=== PATIENT | male | born 1990 | race American Indian/Alaskan Native ===

== ENCOUNTER 2020-08-14 01:34 | Emergency (ER) | payer SELFPAY | END 2020-08-14 02:45 | disposition left against medical advice (07) | LOC: ED 01:34 ==

== ENCOUNTER 2021-02-21 11:19 | Emergency (ER) | payer MEDICARE, MEDICAID ==
--- NOTE | 2021-02-21 14:05 | Emergency Department Report ---
ED General Adult HPI - General Chief complaint: Medical Clearance Stated complaint: SEIZURE Time Seen by Provider: 02/21/21 13:52 Source: patient Mode of arrival: Ambulatory Limitations: No Limitations - History of Present Illness Initial comments: Patient is a 30-year-old male who presents to the emergency room with complaints of needing medical clearance for work. He reports that a few days ago he had a seizure. He reports he has a history of epilepsy and takes Depakote and Oxcarbazepine. He reports that he did not go to work due to him having a seizure a few days ago and now his work is stating he needs medical clearance. 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 He denies any symptoms at all currently and feels fine and states that he just needs a letter for work. He denies any missed doses of his medications and states that he has plenty of medication at home. No allergies medications. - Related Data Allergies Allergy/AdvReac Type Severity Reaction Status Date / Time No Known Allergies Allergy Unverified 08/14/20 01:50 ED Review of Systems ROS: Stated complaint: SEIZURE Other details as noted in HPI Comment: All other systems reviewed and negative ED Past Medical Hx - Past Medical History Previous Medical History?: Yes Hx Seizures: Yes - Surgical History Past Surgical History?: No - Social History Smoking Status: Never Smoker Substance Use Type: Alcohol ED Physical Exam - General Limitations: No Limitations General appearance: alert, in no apparent distress - Head Head exam: Present: atraumatic, normocephalic - Eye Eye exam: Present: normal appearance, EOMI - ENT ENT exam: Present: mucous membranes moist - Respiratory Respiratory exam: Present: normal lung sounds bilaterally. Absent: respiratory distress, wheezes, rales, rhonchi, stridor, chest wall tenderness, accessory muscle use, decreased breath sounds, prolonged expiratory - Cardiovascular Cardiovascular Exam: Present: regular rate, normal rhythm, normal heart sounds. Absent: systolic murmur, diastolic murmur, rubs, gallop - Neurological Exam Neurological exam: Present: alert, oriented X3, CN II-XII intact, normal gait. Absent: motor sensory deficit - Psychiatric Psychiatric exam: Present: normal affect, normal mood - Skin Skin exam: Present: warm, dry, intact ED Course Vital Signs 02/21/21 02/21/21 13:39 15:19 Temperature 98.2 F 98.6 F Pulse Rate 67 69 Respiratory 18 16 Rate Blood Pressure 141/84 124/66 [Right] O2 Sat by Pulse 98 99 Oximetry ED Medical Decision Making - Medical Decision Making Patient is a 30-year-old male who presents to the emergency room with complaints of needing medical clearance for work. He reports that a few days ago he had a seizure. He reports he has a history of epilepsy and takes Depakote and Oxcarbazepine. He reports that he did not go to work due to him having a seizure a few days ago and now his work is stating he needs medical clearance. 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 He denies any symptoms at all currently and feels fine and states that he just needs a letter for work. He denies any missed doses of his medications and states that he has plenty of medication at home. No allergies medications. Vitals are stable. Patient is completely asymptomatic at this time. He is alert and oriented x4. He has no focal neuro deficits. Advised patient Please follow-up with your primary care doctor or clinic in order to receive medical clearance to return to work. Return to emergency room for any new or worsening symptoms. Critical care attestation.: If time is entered above; I have spent that time in minutes in the direct care of this critically ill patient, excluding procedure time. ED Disposition Clinical Impression: Encounter for medical screening examination Disposition: 01 HOME / SELF CARE / HOMELESS Is pt being admited?: No Does the pt Need Aspirin: No Condition: Stable Additional Instructions: Please follow-up with your primary care doctor or clinic in order to receive medical clearance to return to work. Return to emergency room for any new or worsening symptoms. walk in clinic: [facility] in [place], [place] Address: [address] [place] [id number] Referrals: your, primary care doctor [Other] - 3-5 Days Time of Disposition: 14:04 Print Language: IRISH
[2021-02-21 15:20] VITALS: BP 124/66
== END 2021-02-21 15:20 | disposition home or self-care (01) ==
LOC: ED 11:19
DX: G40.909 Epilepsy, unspecified, not intractable, without status epilepticus (principal); Z00.00 Encounter for general adult medical examination without abnormal findings; F10.20 Alcohol dependence, uncomplicated
CPT/HCPCS: 99282

== ENCOUNTER 2021-05-19 11:40 | Emergency (ER) | payer MEDICARE ==
[2021-05-19] MEDS ORDERED: PHENYTOIN 1,000 MG in SODIUM CHLORIDE 0.9% 250ML 250 ML IV ONE (12:45)
--- NOTE | 2021-05-19 12:51 | Emergency Department Report ---
<FLAVIA CANSECO - Last Filed: 05/19/21 15:19> ED Seizure HPI - General Chief Complaint: Seizure Stated Complaint: SEIZURE Time Seen by Provider: 05/19/21 12:42 Source: EMS Mode of arrival: Stretcher Limitations: No Limitations - History of Present Illness Initial Comments: 31-year-old male with a history of seizure brought in by EMS with seizure episode that happened this morning. Patient reports feeling a little bit better but still kind of tired. Patient denies any fever or chills. Seizure is witnessed by family member. He denies any LOC all striking his head on the floor. No other modifying or positive factors reported. MD Complaint: seizure - Related Data Allergies Allergy/AdvReac Type Severity Reaction Status Date / Time No Known Allergies Allergy Unverified 08/14/20 01:50 ED Review of Systems Comment: All other systems reviewed and negative Neurological: as per HPI, other (Seizure) ED Past Medical Hx - Past Medical History Previous Medical History?: Yes Hx Seizures: Yes - Social History Smoking Status: Unknown if ever smoked ED Physical Exam - General Limitations: No Limitations General appearance: alert, in no apparent distress - Head Head exam: Present: atraumatic, normocephalic, normal inspection - Eye Eye exam: Present: normal appearance Pupils: Present: normal accommodation - ENT ENT exam: Present: normal exam, normal orophraynx, mucous membranes moist - Neck Neck exam: Present: normal inspection, full ROM - Respiratory Respiratory exam: Present: normal lung sounds bilaterally - Cardiovascular Cardiovascular Exam: Present: regular rate, normal rhythm, normal heart sounds - GI/Abdominal GI/Abdominal exam: Present: soft, normal bowel sounds. Absent: tenderness - Extremities Exam Extremities exam: Present: normal inspection, full ROM - Back Exam Back exam: Present: normal inspection, full ROM - Neurological Exam Neurological exam: Present: alert, oriented X3, CN II-XII intact, reflexes normal - Psychiatric Psychiatric exam: Present: normal affect, normal mood - Skin Skin exam: Present: warm ED Course - Reevaluation(s) Reevaluation #1: 05/19/21 12:50 Patient here with 2 seizure we will go ahead and get routine labs including thyroid profile to rule out any electrolytes abnormality or any infectious process-- Reevaluation #2: 05/19/21 15:20 Pt signed out to Dr Dow while waiting for his labs including free T4 checked due to abnormal TSH. ED Medical Decision Making - Lab Data Result diagrams: 05/19/21 13:25 05/19/21 13:25 - Medical Decision Making Patient here with 2 seizure we will go ahead and get routine labs including thyroid profile to rule out any electrolytes abnormality or any infectious process--no CT scan of the head indicated at this point since patient has history of seizure and currently on medication and denies any LOC or striking of the head-- Patient could not remember the seizure medicine that you take so I was not able to order a level. ED Disposition Clinical Impression: Seizure Disposition: 01 HOME / SELF CARE / HOMELESS Is pt being admited?: No Does the pt Need Aspirin: No Condition: Stable Instructions: Seizure, Adult Referrals: PRIMARY CARE, [Primary Care Provider] - 3-5 Days Forms: Work/School Release Form(ED) <NICOLE DOW - Last Filed: 05/19/21 16:26> ED Review of Systems ROS: Stated complaint: SEIZURE Other details as noted in HPI ED Course Vital Signs 05/19/21 05/19/21 05/19/21 12:08 12:09 12:11 Temperature 98.6 F Pulse Rate 98 H 103 H Respiratory 18 21 Rate Blood Pressure 120/53 Blood Pressure 111/48 [Left] O2 Sat by Pulse 98 98 95 Oximetry 05/19/21 13:01 Temperature Pulse Rate 99 H Respiratory 20 Rate Blood Pressure 110/46 Blood Pressure [Left] O2 Sat by Pulse 97 Oximetry ED Medical Decision Making - Lab Data Result diagrams: 05/19/21 13:25 05/19/21 13:25 - Medical Decision Making No seizure activity observed in the ER. Patient received Dilantin. I discussed with the patient his medication he stated that he is working Depakote 500 mg twice a day. Patient is noncompliant with his medication. I discussed the patient the need to be compliant with his medication. Patient also advised not to drive or operate heavy machinery. Patient also advised to follow-up with his neurologist in the next 2 to 3 days. I gave a patient 1 month supply of Depakote. Critical care attestation.: If time is entered above; I have spent that time in minutes in the direct care of this critically ill patient, excluding procedure time.
[2021-05-19 13:33] VITALS: BP 110/46
[2021-05-19 13:49] LABS: Hematocrit 42.5 % (35.5-45.6); Hemoglobin 13.8 gm/dl (11.8-15.2); Lymphocytes # (Auto) 0.6 K/mm3 (1.2-5.4); Lymphocytes % (Auto) 4.9 % (13.4-35.0); Mean Corpuscular HGB Conc 32 % (32-34); Mean Corpuscular Volume 83 fl (84-94); Monocytes # (Auto) 0.7 K/mm3 (0.0-0.8); Monocytes % (Auto) 5.2 % (0.0-7.3); Platelet Count 174 K/mm3 (140-440); Red Blood Count 5.15 M/mm3 (3.65-5.03); Red Cell Distribution Width 13.5 % (13.2-15.2)
[2021-05-19 14:13] LABS: Alanine Aminotransferase 26 units/L (7-56); Albumin 4.3 g/dL (3.9-5); BUN/Creatinine Ratio 22; Blood Urea Nitrogen 20 mg/dL (9-20); Calcium 9.4 mg/dL (8.4-10.2); Hemolysis Index 24
[2021-05-19 14:51] LABS: Color,Urine Yellow (Yellow)
[2021-05-19 14:52] LABS: Bilirubin,Urine Negative (Negative); Blood,Urine Negative (Negative)
[2021-05-19 14:59] LABS: Amorphous Crystals,Urine 1+; Bacteria,Urine 1+ /HPF (Negative); Mucus,Urine FEW /HPF
== END 2021-05-19 16:58 | disposition home or self-care (01) ==
LOC: ED 11:40
DX: A01.00 Typhoid fever, unspecified (principal); G40.909 Epilepsy, unspecified, not intractable, without status epilepticus
CPT/HCPCS: 36415; 80053; 81001; 84439; 84443; 84484; 85025; 96365; 99284; J1165; J7050

== ENCOUNTER 2021-05-22 20:52 | Emergency (ER) | payer MEDICARE ==
[2021-05-22 22:23] LABS: Hematocrit 40.7 % (35.5-45.6); Hemoglobin 12.9 gm/dl (11.8-15.2); Mean Corpuscular HGB Conc 32 % (32-34); Mean Corpuscular Volume 84 fl (84-94); Platelet Count 155 K/mm3 (140-440); Red Blood Count 4.86 M/mm3 (3.65-5.03); Red Cell Distribution Width 12.7 % (13.2-15.2)
--- NOTE | 2021-05-22 22:44 | Cat Scan Report ---
CT head without contrast INDICATION : Seizure TECHNIQUE: Axial imaging performed from the skull apex through the skull base without the use of con trast. All CT examinations performed at this facility utilize dose modulation, iterative reconstruct ion or weight-based dosing, when appropriate, to reduce radiation dose to as low as reasonably achiev able. COMPARISON: None FINDINGS: No acute intracranial hemorrhage or parenchymal abnormality. Ventricles are normal in si ze and appear symmetric. Soft tissues including the orbits appear normal. No acute osseous abnorm ality. Sinuses and mastoid air cells are clear. IMPRESSION: No acute abnormality. Signer Name: Neftaly Conner MD Signed: 05/22/2021 10:39 PM Workstation Name: [id number]
--- NOTE | 2021-05-22 22:44 | XRay Report ---
CHEST 1 VIEW INDICATION / CLINICAL INFORMATION: seizure. FINDINGS: SUPPORT DEVICES: None. HEART / MEDIASTINUM: No significant abnormality. LUNGS / PLEURA: No significant pulmonary or pleural abnormality. No pneumothorax. ADDITIONAL FINDINGS: No significant additional findings. IMPRESSION: 1. No acute findings. Signer Name: Neftaly Conner MD Signed: 05/22/2021 10:39 PM Workstation Name: [email or web address]
[2021-05-22 22:48] LABS: Bilirubin,Urine NEG (Negative); Blood,Urine NEG (Negative); Color,Urine Yellow (Yellow); Mucus,Urine FEW /HPF; Protein,Urine <15 mg/dL mg/dL (Negative); Urobilinogen,Urine < 2.0 mg/dL (<2.0)
[2021-05-22 22:58] LABS: Amphetamine Screen,Urine PRESUMPTIVE NEGATIVE; Benzodiazepines Screen,Urine PRESUMPTIVE NEGATIVE; Cannabinoid Screen,Urine PRESUMPTIVE NEGATIVE; Cocaine Screen,Urine PRESUMPTIVE NEGATIVE; Methadone Screen,Urine PRESUMPTIVE NEGATIVE; Opiate Screen,Urine PRESUMPTIVE NEGATIVE
[2021-05-22 23:07] LABS: Alanine Aminotransferase 76 units/L (7-56); BUN/Creatinine Ratio 15; Blood Urea Nitrogen 16 mg/dL (9-20); Calcium 8.5 mg/dL (8.4-10.2); Hemolysis Index 4
--- NOTE | 2021-05-23 00:40 | Emergency Department Report ---
ED General Adult HPI - General Chief complaint: Seizure Stated complaint: SEIZURE Time Seen by Provider: 05/22/21 21:35 Source: patient Mode of arrival: Stretcher Limitations: No Limitations - History of Present Illness Initial comments: patient presents with complaints of a tonic clonic seizure. No wiutneses are aropuind to giuve collateral hx. Patient denies tongue biting, bowel/uirnary incontinence, MENENDEZ, CP, SOB, abd pain, back pain, numbness, weakness. Patient has a hx of seizure disorder and takes oxcarbazepine and levetiracetam chronically, with depakote also added recently. - Related Data Previous Rx's Medication Instructions Recorded Last Taken Type Divalproex Dr [DepaKOTE DR] 500 mg PO BID #60 tablet 05/19/21 Unknown Rx Allergies Allergy/AdvReac Type Severity Reaction Status Date / Time No Known Allergies Allergy Unverified 08/14/20 01:50 ED Review of Systems ROS: Stated complaint: SEIZURE Other details as noted in HPI Comment: All other systems reviewed and negative Constitutional: denies: chills, fever ED Past Medical Hx - Past Medical History Previous Medical History?: Yes Hx Seizures: Yes Hx HIV: Yes - Surgical History Past Surgical History?: No - Social History Smoking Status: Unknown if ever smoked - Medications Home Medications: Home Medications Medication Instructions Recorded Confirmed Last Taken Type Divalproex Dr [DepaKOTE DR] 500 mg PO BID #60 tablet 05/19/21 Unknown Rx ED Physical Exam - General Limitations: No Limitations General appearance: alert, in no apparent distress - Head Head exam: Present: atraumatic, normocephalic - Eye Eye exam: Present: PERRL, EOMI - ENT ENT exam: Present: mucous membranes moist, other (airway patent) - Neck Neck exam: Present: other (supple; no JVD) - Respiratory Respiratory exam: Present: other (good air entry, nml I:E, CTAB, no use of EMANUEL) - Cardiovascular Cardiovascular Exam: Present: regular rate, normal rhythm. Absent: rubs, gallop - GI/Abdominal GI/Abdominal exam: Present: soft, normal bowel sounds. Absent: distended, tenderness, guarding, rebound - Extremities Exam Extremities exam: Present: full ROM. Absent: tenderness - Back Exam Back exam: Present: full ROM. Absent: tenderness - Neurological Exam Neurological exam: Present: alert, oriented X3, CN II-XII intact, other (neg Kernig's and Brudzinski's signs). Absent: motor sensory deficit - Skin Skin exam: Present: warm, normal color ED Course Vital Signs 05/22/21 05/22/21 05/22/21 21:22 21:24 21:35 Temperature 98 F 98.1 F Pulse Rate 75 79 76 Respiratory 18 20 19 Rate Blood Pressure 123/73 120/67 O2 Sat by Pulse 100 100 98 Oximetry 05/22/21 05/22/21 05/22/21 21:45 21:46 22:00 Temperature Pulse Rate 72 76 Respiratory 14 26 H Rate Blood Pressure 99/75 O2 Sat by Pulse 100 100 96 Oximetry 05/22/21 05/22/21 05/22/21 22:16 22:32 22:46 Temperature Pulse Rate 76 76 70 Respiratory 28 H 16 14 Rate Blood Pressure O2 Sat by Pulse 99 99 99 Oximetry ED Medical Decision Making - Lab Data Result diagrams: 05/22/21 22:04 05/22/21 22:29 Laboratory Tests 05/22/21 05/22/21 05/22/21 22:04 22:13 22:13 WBC 5.3 RBC 4.86 Hgb 12.9 Hct 40.7 MCV 84 MCH 27 L MCHC 32 RDW 12.7 L Plt Count 155 Sodium Potassium Chloride Carbon Dioxide Anion Gap BUN Creatinine Estimated GFR BUN/Creatinine Ratio Glucose Calcium Total Bilirubin AST ALT Alkaline Phosphatase Troponin T Total Protein Albumin Albumin/Globulin Ratio Urine Color Yellow Urine Turbidity Clear Urine pH 6.0 Ur Specific Raymond 1.019 Urine Protein <15 mg/dl Urine Glucose (UA) Neg Urine Ketones Neg Urine Blood Neg Urine Nitrite Neg Urine Bilirubin Neg Urine Urobilinogen < 2.0 Ur Leukocyte Esterase Neg Urine WBC (Auto) 3.0 Urine RBC (Auto) 1.0 Urine Mucus Few Urine Opiates Screen Presumptive negative Urine Methadone Screen Presumptive negative Ur Barbiturates Screen Presumptive negative Ur Phencyclidine Scrn Presumptive negative Ur Amphetamines Screen Presumptive negative U Benzodiazepines Scrn Presumptive negative Urine Cocaine Screen Presumptive negative U Marijuana (THC) Screen Presumptive negative Drugs of Abuse Note Disclamer 05/22/21 22:29 WBC RBC Hgb Hct MCV MCH MCHC RDW Plt Count Sodium 137 Potassium 4.0 Chloride 99.5 Carbon Dioxide 29 D Anion Gap 13 BUN 16 Creatinine 1.1 Estimated GFR > 60 BUN/Creatinine Ratio 15 Glucose 110 H Calcium 8.5 Total Bilirubin 0.30 AST 191 H ALT 76 H Alkaline Phosphatase 69 Troponin T < 0.010 Total Protein 7.2 Albumin 4.0 Albumin/Globulin Ratio 1.3 Urine Color Urine Turbidity Urine pH Ur Specific Raymond Urine Protein Urine Glucose (UA) Urine Ketones Urine Blood Urine Nitrite Urine Bilirubin Urine Urobilinogen Ur Leukocyte Esterase Urine WBC (Auto) Urine RBC (Auto) Urine Mucus Urine Opiates Screen Urine Methadone Screen Ur Barbiturates Screen Ur Phencyclidine Scrn Ur Amphetamines Screen U Benzodiazepines Scrn Urine Cocaine Screen U Marijuana (THC) Screen Drugs of Abuse Note EKG: HR 72, SR, nml Pr, narrow QRS, no significant ST changes in contiguous leads CXR: no acute cardiopulmonary process CT head: no acute intracranial abnormality Keppra, depakote and oxcabarzepine levels sent out. Patient's primary to follow. - Medical Decision Making Diff dz: likely 04/06 breakthrough seizure, probably from non compliance. No signs of ICH, SAH, CVA, intracranial stroke occupying lesion, meningitis. Hypoglycemia, electrolyte disorder ruled out. Critical care attestation.: If time is entered above; I have spent that time in minutes in the direct care of this critically ill patient, excluding procedure time. ED Disposition Clinical Impression: Seizure Disposition: 01 HOME / SELF CARE / HOMELESS Is pt being admited?: No Does the pt Need Aspirin: No Condition: Stable Instructions: Epilepsy, [id number] Additional Instructions: Let your regular doctor know that your blood levels were drawn, so he/she can follow up on them at your follow up visit. Make sure you take your medications. Return to the ER if your symptoms worsen. Referrals: RAHEL WOOD MD [Primary Care Provider] - 3-5 Days Time of Disposition: 12:30
[2021-05-23 01:31] VITALS: BP 120/66
--- NOTE | 2021-05-23 10:25 | Electrocardiograph Report ---
[facility] Test Date: 2021-05-22 Test Time: 22:12:58 Pat Name: JESSE CHOI Department: Room: Gender: M Resident Care Spec: KIERA Rangel : 1990 Requested By: KRISHNA GARRETT Order Number: [id number] Reading MD: Giovanni Pabon Measurements Intervals [place] Rate: 74 P: 70 FL: 174 QRS: 40 QRSD: 89 T: 45 QT: 363 QTc: 403 Interpretive Statements Sinus rhythm ST elev, probable normal early repol pattern No previous ECG available for comparison Electronically Signed On 05-23-2021 10:25:40 EDT by Giovanni Pabon
== END 2021-05-23 01:38 | disposition home or self-care (01) ==
LOC: ED 20:52
DX: R56.9 Unspecified convulsions (principal)
CPT/HCPCS: 36415; 70450; 71045; 80053; 80164; 80177; 80307; 81001; 82962; 84484; 85027; 93005; 99285

== ENCOUNTER 2021-08-10 21:19 | Emergency (ER) | payer MEDICARE ==
[2021-08-11] MEDS ORDERED: NEOMY 3.5 MG/BACIT 400 UNITS/POLY B 5000 UNITS/GM OINT PACKET TP ONE (08:05)
[2021-08-11] MEDS ORDERED: TETANUS,DIPH,PERTUSS(ACELL) VACCINE 0.5 ML SYRINGE IM ONE (08:05)
--- NOTE | 2021-08-11 08:28 | Emergency Department Report ---
- General Chief Complaint: Wound/Laceration Stated Complaint: RT FOOT INJURY Time Seen by Provider: 08/11/21 07:54 Source: patient Mode of arrival: Ambulatory Limitations: No Limitations - History of Present Illness Initial Comments: Patient is a 31-year-old male that comes to the emergency room with a cut on the bottom of his right foot. He states he was walking to work and a piece of glass went through his shoe piercing his foot. He does not recall when his last tetanus shot was. Patient was admitted to the ER about 12 hours ago. On exam in [facility] he has a less than one half cm avulsion wound to the ball of his right foot. Bleeding is controlled. He is neurovascularly intact. -: Sudden, hour(s) Location: other Extremity Location: Right: Foot Place: outdoors Patient Tetanus UTD: No Context: accidental Associated Symptoms: none - Related Data Previous Rx's Medication Instructions Recorded Last Taken Type Divalproex Dr [DepaKOTE DR] 500 mg PO BID #60 tablet 05/19/21 Unknown Rx Allergies Allergy/AdvReac Type Severity Reaction Status Date / Time No Known Allergies Allergy Unverified 08/14/20 01:50 ED Review of Systems ROS: Stated complaint: RT FOOT INJURY Other details as noted in HPI Comment: All other systems reviewed and negative ED Past Medical Hx - Past Medical History Previous Medical History?: Yes Hx Seizures: Yes Hx HIV: Yes - Surgical History Past Surgical History?: No - Family History Family history: no significant - Social History Smoking Status: Unknown if ever smoked Substance Use Type: None - Medications Home Medications: Home Medications Medication Instructions Recorded Confirmed Last Taken Type Divalproex Dr [DepaKOTE DR] 500 mg PO BID #60 tablet 05/19/21 Unknown Rx ED Physical Exam - General Limitations: No Limitations General appearance: alert, in no apparent distress - Head Head exam: Present: atraumatic, normocephalic - Eye Eye exam: Present: normal appearance - ENT ENT exam: Present: mucous membranes moist - Neck Neck exam: Present: normal inspection - Respiratory Respiratory exam: Present: normal lung sounds bilaterally. Absent: respiratory distress - Cardiovascular Cardiovascular Exam: Present: regular rate, normal rhythm. Absent: systolic murmur, diastolic murmur, rubs, gallop - GI/Abdominal GI/Abdominal exam: Present: soft, normal bowel sounds - Rectal Rectal exam: Present: deferred - Extremities Exam Extremities exam: Present: normal inspection - Back Exam Back exam: Present: normal inspection - Neurological Exam Neurological exam: Present: alert, oriented X3 - Psychiatric Psychiatric exam: Present: normal affect, normal mood - Skin Skin exam: Present: warm, dry, normal color, other. Absent: rash - Expanded Skin Exam Expanded 1 - bottom of r foot at ball of foot; < .5 cm avulsion/superficial wound ED Course Vital Signs 08/10/21 21:26 Temperature 98.2 F Pulse Rate 77 Respiratory 18 Rate Blood Pressure 137/79 O2 Sat by Pulse 96 Oximetry ED Medical Decision Making - Medical Decision Making Vital Signs 08/10/21 21:26 Temperature 98.2 F Pulse Rate 77 Respiratory 18 Rate Blood Pressure 137/79 O2 Sat by Pulse 96 Oximetry Foot does not require suturing. Wound care instructions provided Tdap updated Patient being discharged home with discharge plan of care including diet, medications, activity and follow-up. He verbalizes understanding. - Differential Diagnosis lac Critical care attestation.: If time is entered above; I have spent that time in minutes in the direct care of this critically ill patient, excluding procedure time. ED Disposition Clinical Impression: Laceration Disposition: 01 HOME / SELF CARE / HOMELESS Is pt being admited?: No Does the pt Need Aspirin: No Condition: Stable Instructions: Laceration Care, Adult Additional Instructions: [id number] Motrin or Tylenol for pain. Keep wound clean and dry. Follow-up with PCP next week to make sure the wound is healing well I have given you referral below Referrals: RAHEL WOOD MD [Staff Physician] - 3-5 Days Forms: Work/School Release Form(ED) Time of Disposition: 08:43
[2021-08-11] MEDS ORDERED: SODIUM CHLORIDE 0.9% IRR 500 ML BOTTLE IR SCH (08:30)
[2021-08-11 08:52] VITALS: BP 121/81
== END 2021-08-11 08:51 | disposition home or self-care (01) ==
LOC: ED 21:19
DX: S91.311A Laceration without foreign body, right foot, initial encounter (principal); X58.XXXA Exposure to other specified factors, initial encounter; Y93.89 Activity, other specified; Y92.89 Other specified places as the place of occurrence of the external cause; Y99.8 Other external cause status
CPT/HCPCS: 90471; 90715; 99282

== ENCOUNTER 2021-09-08 21:51 | Emergency (ER) | payer MEDICARE ==
[2021-09-08 23:09] VITALS: BP 128/62
--- NOTE | 2021-09-09 02:05 | Emergency Department Report ---
Eye Injury/Foreign Body - HPI Duration: 5 Days Eye Location: Left Severity: Mild Tetanus Status: Up to Date Eye Symptoms: Eye Pain: No, Blurred Vision: No, Eye Redness: No, Grinding/Hammering Metal: No, Used Eye Protection: No, Contact Lens Use: No, Recalls Injury: No, Photophobia: No Other History: 31-year-old male with metformin complaining of occasional irritation with a sensation of something being in his with biking from time to time was spontaneously resolved when he wipes his vigorously. He has not noticed anything as the stress of the stone began to emerge apartment to have his eyes checked to be sure he did not have a bug or foreign body in the although he is asymptomatic at this present time. Ports no fever, chills, sweats. No blurry vision, no nausea, no vomiting ED Review of Systems ROS: Stated complaint: EYE PAIN Other details as noted in HPI Comment: All other systems reviewed and negative ED Past Medical Hx - Past Medical History Hx Seizures: Yes Hx HIV: Yes - Social History Smoking Status: Unknown if ever smoked Substance Use Type: None - Medications Home Medications: Home Medications Medication Instructions Recorded Confirmed Last Taken Type Divalproex Dr [DepaKOTE ] 500 mg PO BID #60 tablet 05/19/21 Unknown Rx Eye Injury Exam - Exam General: Vital signs noted. No distress. Alert and acting appropriately. ED Course Vital Signs 09/08/21 23:05 Temperature 98.5 F Pulse Rate 92 H Respiratory 18 Rate Blood Pressure 128/62 [Right] O2 Sat by Pulse 95 Oximetry Critical care attestation.: If time is entered above; I have spent that time in minutes in the direct care of this critically ill patient, excluding procedure time. ED Disposition Clinical Impression: Cyst of eyelid Disposition: 01 HOME / SELF CARE / HOMELESS Is pt being admited?: No Does the pt Need Aspirin: No Condition: Stable Additional Instructions: Please use [id number] eyelid wipes as we discussed you may use them as directed by the instructions Referrals: [facility] [Provider Group] - 3-5 Days ED ENT EXAM - General General appearance: alert Limitations: No Limitations, Language Barrier - Eye Eye exam: normal appearance, PERRL, EOMI, other (Small mucocele on the left lower eyelid) With correction: No Extraocular Movement: Normal, Other (No foreign bodies were visualized) Pupils: Positive: normal accommodation - ENT Ear exam: Positive: normal external inspection Mouth exam: Positive: normal external inspection Teeth exam: Positive: normal inspection Throat exam: Positive: normal inspection - Neck Neck exam: Positive: normal inspection - Cardiovascular Cardiovascular Exam: Positive: regular rate. Negative: normal rhythm, bradycardia, systolic murmur, diastolic murmur - Neurological Neurological exam: Positive: alert - Skin Skin exam: Positive: warm
== END 2021-09-09 03:12 | disposition home or self-care (01) ==
LOC: ED 21:51
DX: H02.826 Cysts of left eye, unspecified eyelid (principal); R56.9 Unspecified convulsions; Z21 Asymptomatic human immunodeficiency virus [HIV] infection status
CPT/HCPCS: 99282